=== PATIENT | male | born 1990 | race African-American/Black ===

== ENCOUNTER 2019-12-20 11:46 | Inpatient (IN) | payer MEDICAID ==
[~2019-12-20] VITALS: Ht 185.4 cm; Wt 81.2 kg
--- NOTE | 2019-12-20 11:51 | NUR ---
BIBSELF W C/O SHARP L SIDED CHEST PAIN SINCE THIS MORNING 1130 AM, PAIN ON INSPIRATION 10/10PS. TO ER BED 11, HOOKED TO MONITOR, CHANGED TO HOSP GOWN, WARM BLANKLET PROVIDED. AWAITING MD MALONE
--- NOTE | 2019-12-20 11:55 | NUR ---
DR ESPINOZA AT BEDSIDE
--- NOTE | 2019-12-20 12:42 | NUR ---
DR ESPINOZA AT BEDSIDE TO EXPLAIN PROCEDURE. PATIENT VERBALIZED UNDERSTANDING.
--- NOTE | 2019-12-20 12:48 | NUR ---
PATIENT SIGNED FOR TUBE THORACOSTOMY FOR LEFT PNEUMOTHORAX
--- NOTE | 2019-12-20 12:49 | NUR ---
CALLED THORACIC SALES PROGRAM COORDINATOR DR ALVARADO, LEFT VOICEMAIL
--- NOTE | 2019-12-20 12:50 | NUR ---
DR ALVARADO SPEAKING WITH DR ESPINOZA
[2019-12-20 12:51] LABS: CALCIUM, SERUM 9.6 mg/dL (8.5-10.1); CARBON DIOXIDE 30 mmol/L (21-32); CHLORIDE 103 mmol/L (98-107); GLUCOSE 95 mg/dL (74-106); SODIUM SERUM 140 mmol/L (136-145); UREA NITROGEN, BLOOD 12 mg/dL (7-18)
--- NOTE | 2019-12-20 13:12 | NUR ---
DR ESPINOZA AT BEDSIDE FOR PROCEDURE
[2019-12-20 13:13] LABS: BASOPHILS % (AUTO) 0.6 % (0.0-2.0); EOSINOPHILS % (AUTO) 2.2 % (0.0-6.0); HEMATOCRIT 48 % (39-51); HEMOGLOBIN 16.1 g/dL (13.5-17.5); LYMPHOCYTES # (AUTO) 1.7 /CMM (0.8-4.8); LYMPHOCYTES % (AUTO) 31.7 % (20.0-44.0); MEAN CORPUSCULAR HGB CONC 34 g/dl (31.0-36.0); MEAN CORPUSCULAR VOLUME 95 fL (80-96); MONOCYTES # (AUTO) 0.3 /CMM (0.1-1.30); MONOCYTES % (AUTO) 5.5 % (2.0-12.0); NEUTROPHILS # (AUTO) 3.3 /CMM (1.8-8.9); PLATELET COUNT (AUTO) 280 /CMM (150-450); RED BLOOD CELL COUNT(AUTO) 5.03 MIL/uL (4.5-6.0); WHITE BLOOD COUNT (AUTO) 5.4 K/uL (4.3-11.0)
--- NOTE | 2019-12-20 13:25 | NUR ---
CONSENT SIGNED BY THE PATIENT FOR MODERATE SEDATION
[2019-12-20] MEDS ORDERED: LIDOCAINE 1% INJ 50 ML MDV IJ ONE (13:29)
[2019-12-20] MEDS ORDERED: FENTANYL PF 100MCG/2ML AMPUL ONE (13:29)
--- NOTE | 2019-12-20 13:29 | NUR ---
RECEIVED VERBAL ORDER FROM DR ESPINOZA OF FENTANYL 100MCG IVP. CARRIED OUT
[2019-12-20] MEDS ORDERED: KETAMINE HCL (500MG/10ML) 50 MG/ML VIAL ONE (13:43)
[2019-12-20] MEDS ORDERED: KETAMINE HCL(200MG/20ML) 10 MG/ML VIAL IV ONE ×2 (14:00→15:00)
--- NOTE | 2019-12-20 14:06 | NUR ---
RECEIVED VERBAL ORDER FROM DR ESPINOZA OF KETAMINE 150MG IVP. CARRIED OUT
--- NOTE | 2019-12-20 14:13 | NUR ---
RECEIVED VERBAL ORDER FROM DR ESPINOZA OF KETAMINE 150MG IVP. CARRIED OUT
--- NOTE | 2019-12-20 14:15 | NUR ---
XRAY, PLACEMENT OF CHEST TUBE CONFIRMED BY DR BLANTON AND DR ESPINOZA
--- NOTE | 2019-12-20 14:24 | NUR ---
POST PROCEDURE VSS AFTER INSERTION OF CHEST TUBE TAKEN AND RECORDED. BP: 174/101 HR: 77 RESP: 16 O2 SATURATION: 100%
--- NOTE | 2019-12-20 14:28 | NUR ---
PATIENT AWAKE FROM MODERATE SEDATION, AOx4, VSS.
[2019-12-20] MEDS ORDERED: HYDROMORPHONE INJ 0.5 MG/0.5 ML SYRINGE IV PRN ×2 (15:00→16:00)
--- NOTE | 2019-12-20 15:35 | NUR ---
REPORT GIVEN TO WIL HAY OF [facility]
[2019-12-20] MEDS ORDERED: ONDANSETRON HCL/PF 4 MG/2 ML VIAL IVP PRN (16:00)
[2019-12-20] MEDS ORDERED: MAGNESIUM HYDROXIDE 30 ML UDC PO PRN (16:00)
[2019-12-20] MEDS ORDERED: ACETAMINOPHEN 325 MG TABLET PO PRN (16:00)
[2019-12-20] MEDS ORDERED: Z GUARD REMEDY 2 OZ OINT TP PRN (16:00)
[2019-12-20] MEDS ORDERED: MAG HYDROX/AL HYDROX/SIMETH 30 ML UDC PO PRN (16:00)
[2019-12-20] MEDS ORDERED: FENTANYL PF 100MCG/2ML AMPUL IV PRN (16:30)
[2019-12-20] MEDS ORDERED: HYDROMORPHONE 1 MG/1 ML DISP.SYRIN ONE (16:32)
[2019-12-20] MEDS: IV NS 0.9% 1,000 ML IV PRN (16:53)
[2019-12-20 17:00] VITALS: BP 139/79
[2019-12-20] MEDS ORDERED: HYDROMORPHONE INJ 2 MG/ML DISP.SYRIN IV ONE (17:00)
--- NOTE | 2019-12-20 17:00 | NUR ---
CEMENTER MACHINE NOTE RECEIVED REPORT FROM GHAZAL HAY. PATIENT CAME IN VIA GURNEY. ON ROOM AIR, NO COMPLAINS OF ANY SOB AT THIS TIME. COMPLAINING OF PAIN ON HIS LEFT CHEST. ALERT AND ORIENTED X4. ON TELE MONITOR, SR. SKIN INTACT. PATIENT IS AMBULATORY WITH STEADY GAIT. HAS A LEFT AC #18 AND RIGHT AC #18. PATIENT IS S/P CHEST TUBE INSERTION IN ER AT 1408. 20F MID AXILLARY 4TH AND 5TH INTERCOSTAL SPACE. PATIENT WAS GIVEN MODERATE SEDATION. WAITING FOR ADMITTING ORDERS
[2019-12-20 17:30] VITALS: BP 139/79
[2019-12-20] MEDS: PANTOPRAZOLE 40 MG TABLET.DR PO SCH (18:28)
[2019-12-20] MEDS: HYDROCODONE/APAP 10/325MG 1 EA TABLET PO PRN ×2 (18:29→22:04)
--- NOTE | 2019-12-20 19:30 | NUR ---
RN NOTES RECEIVED PT. AWAKE ON BED, S/P CHEST TUBE INSERTION IN ER, CHEST TUBE SITE DRY AND INTACT, SR ON TELE MONITOR ,A/OX4, PAIN IS TOLERABLE AT THIS TIME, NO SOB, CALL ;LIGHT WITHIN REACH, SIDERAILSUPX2, CONTINUE TO MONITOR
[2019-12-20 20:00] VITALS: BP 109/70
[2019-12-20] MEDS: MORPHINE SULFATE INJ 4 MG/ML DISP.SYRIN IV PRN (20:24)
--- NOTE | 2019-12-20 20:51 | NUR ---
RN NOTES PT. COMPLAINED OF LEFT CHEST TUBE SITE- MORPHINE 4 MG IV GIVEN ORDERED, V/S STABLE
[2019-12-21] VITALS: BP 120/69
[2019-12-21] MEDS: MORPHINE SULFATE INJ 4 MG/ML DISP.SYRIN IV PRN ×5 (00:08→20:08)
--- NOTE | 2019-12-21 00:13 | NUR ---
RN NOTES COMPLAINED OF LEFT CHEST TUBE SITE- MORPHINE 4 MG IV GIVEN ORDERED, V/S STABLE
[2019-12-21] MEDS: HYDROCODONE/APAP 10/325MG 1 EA TABLET PO PRN ×5 (02:10→17:40)
--- NOTE | 2019-12-21 02:18 | NUR ---
RN NOTES COMPLAINED OF LEFT CHEST TUBE SITE PAIN- GAVE NORCO 10/325MG PO FOR BREAKTHROUGH PAIN, V/S STABLE
[2019-12-21 04:00] VITALS: BP 123/56
--- NOTE | 2019-12-21 04:00 | NUR ---
RN NOTES COMPLAINED OF LEFT CHEST TUBE SITE PAIN 07/05- MORPHINE 4 MG IV GIVEN ORDERED, V/S STABLE
[2019-12-21] MEDS: IV NS 0.9% 1,000 ML IV PRN (04:18)
--- NOTE | 2019-12-21 06:10 | NUR ---
RN NOTES COMPLAINED OF LEFT CHEST TUBE SITE PAIN- 5/10, NORCO 10/325MG PO GIVEN ORDERED, V/S STABLE
--- NOTE | 2019-12-21 06:20 | NUR ---
RN NOTES AWAKE, MORNING CARE RENDERED, CHEST TUBE IN PLACE, SIDERAILSUPX2, CALL LIGHT WITHIN REACH, PT. NEEDS ATTENDED
--- NOTE | 2019-12-21 07:30 | NUR ---
MS/RN OPENING NOTES: RECEIVED PT AWAKE IN BED A&OX4. NO RESPIRATORY DISTRESS NOTED. PT WITH CHEST TUBE ON LEFT SIDE W/ NO DRAINAGE NOTED AT THIS TIME. DRESSING CLEAN AND DRY. RESPIRATIONS EVEN AND UNLABORED. HAS IV ACCESS ON RIGHT AC AND LEFT AC W/ 0.9% NS RUNNING AT 75ML/HR ON THE LEFT AC. LINES FLUSHED, INTACT, CLEAN AND DRY W/ SL. PT COMFORTABLE AT THIS TIME. ALL SCHEDULED AM MEDS TO BE GIVEN. CALL LIGHT W/IN REACH, SAFETY MEASURES IN PLACE. ONGOING MONITORING.
[2019-12-21 07:37] LABS: BASOPHILS % (AUTO) 0.3 % (0.0-2.0); EOSINOPHILS % (AUTO) 0.6 % (0.0-6.0); HEMATOCRIT 48 % (39-51); HEMOGLOBIN 16.3 g/dL (13.5-17.5); LYMPHOCYTES # (AUTO) 3.6 /CMM (0.8-4.8); LYMPHOCYTES % (AUTO) 36.3 % (20.0-44.0); MEAN CORPUSCULAR HGB CONC 34 g/dl (31.0-36.0); MEAN CORPUSCULAR VOLUME 94 fL (80-96); MONOCYTES # (AUTO) 0.8 /CMM (0.1-1.30); MONOCYTES % (AUTO) 8.4 % (2.0-12.0); NEUTROPHILS # (AUTO) 5.4 /CMM (1.8-8.9); NEUTROPHILS % (AUTO) 54.4 % (43.0-81.0); PLATELET COUNT (AUTO) 270 /CMM (150-450); RED BLOOD CELL COUNT(AUTO) 5.14 MIL/uL (4.5-6.0); WHITE BLOOD COUNT (AUTO) 9.8 K/uL (4.3-11.0)
[2019-12-21 08:00] VITALS: BP_SYST 103; BP_SYST 115; BP_DIAS 55; BP_DIAS 58
[2019-12-21 08:23] LABS: CALCIUM, SERUM 9.3 mg/dL (8.5-10.1); CREATININE 0.9 mg/dL (0.6-1.3); MAGNESIUM 1.9 mg/dL (1.8-2.4); PHOSPHORUS 3.8 mg/dL (2.5-4.9); POTASSIUM 3.4 mmol/L (3.5-5.1)
[2019-12-21] MEDS: PANTOPRAZOLE 40 MG TABLET.DR PO SCH (08:53)
--- NOTE | 2019-12-21 11:20 | NUR ---
TELE1/SEAMLESS HOSIERY KNITTER OF CARE PT ENDORSED TO NURSE ROBLERO IN STABLE CONDITION TO CONTINUE CARE.
--- NOTE | 2019-12-21 11:51 | NUR ---
MS RN Notes Patient in stable condition. Alert and oriented x4. Patient RR. 16 02-96 on RA. No SOB, patient occasionally coughs non productive. IV access R and L AC flushes well. Ambulated patient around unit. Reassessed pain after prior Dilaudid administration. Patient reports 5/10 pain from prior reported pain of "9 or 10". Will continue to monitor for s/s of respiratory distress and signs of pain.
[2019-12-21 14:20] VITALS: BP 115/55
[2019-12-21] MEDS ORDERED: POTASSIUM CHLORIDE 20 MEQ TAB.PRT.SR PO SCH (14:30)
[2019-12-21 16:01] VITALS: BP 115/55
--- NOTE | 2019-12-21 17:21 | NUR ---
RN NOTE PT ENDORSE TO SATNAM BOTELLO AT THIS TIME
--- NOTE | 2019-12-21 17:45 | NUR ---
MS RN NOTES RECEIVED PATIENT A/O X 4. NO SOB NOTED AT THIS TIME. PATIENT IS COMPLAINING OF CHEST TUBE SITE PAIN, PAIN MEDICATION WILL BE PROVIDE. CALL LIGHT WITHIN REACH , BED AT THE LOWEST POSITION LOCKED. NO CHEST TUBE DRAINAGE NOTED AT THIS TIME.
--- NOTE | 2019-12-21 19:45 | NUR ---
MS RN NOTES PATIENT IN BED AWAKE, NO SOB OR DISCOMFORT NOTED AT THIS TIME. ALL NEEDS ATTENDED. CALL LIGHT WITHIN REACH, BED AT THE LOWEST POSITION LOCKED, WILL ENDORSE TO TUBE CLEANING OPERATOR FOR HANSEL.
[2019-12-21 20:00] VITALS: BP 134/80
--- NOTE | 2019-12-21 20:14 | NUR ---
IVF DISCONTINUED PATIENT STATES DOCTOR SAID HE DIDN'T HAVE TO GET IVF, PATIENT HAS NOT BEEN RECIEVING SINCE THIS AFTERNOON.
[2019-12-21] MEDS: ZOLPIDEM TARTRATE 5 MG TABLET PO PRN (21:07)
[2019-12-22] MEDS: MORPHINE SULFATE INJ 4 MG/ML DISP.SYRIN IV PRN ×6 (00:09→22:42)
[2019-12-22 04:00] VITALS: BP 130/63
[2019-12-22 07:04] LABS: CALCIUM, SERUM 9.2 mg/dL (8.5-10.1); CREATININE 0.8 mg/dL (0.6-1.3); POTASSIUM 3.8 mmol/L (3.5-5.1)
--- NOTE | 2019-12-22 07:15 | NUR ---
RN OPENING NOTE: RECEIVED PATIENT IN BED. AWAKE, ALERT AND ORIENTED X4. EASILY AROUSABLE. ON ROOM AIR AND TOLERATING WELL, SATURATION >92%. NO SOB AND NOT IN RESPIRATORY DISTRESS. WITH CHEST TUBE ON WATER SEAL LOCATED ON THE LEFT SIDE. NO LEAKS NOTED, SYSTEM BELOW THE LUNGS. IV SITES PATENT, CLEAN, DRY AND SECURE. PAIN REPORTED AROUND CHEST TUBE SITE AND PATIENT WILL BE GIVEN PAIN MEDICATION TO ADDRESS THE ISSUE. CALL LIGHT IN REACH. BED LOCKED, LOW AND AT SEMI-MCWILLIAMS'S POSITION. NEEDS ANTICIPATED. SIDE RAILS UP X3. WILL CONTINUE TO MONITOR.
[2019-12-22] MEDS: PANTOPRAZOLE 40 MG TABLET.DR PO SCH (07:46)
[2019-12-22 08:00] VITALS: BP 124/67
[2019-12-22] MEDS ORDERED: MAGNESIUM HYDROXIDE 30 ML UDC PO PRN (11:00)
[2019-12-22] MEDS: DOCUSATE SODIUM 100 MG CAPSULE PO SCH ×2 (14:18→16:31)
[2019-12-22] MEDS: HYDROCODONE/APAP 10/325MG 1 EA TABLET PO PRN ×2 (14:18→21:19)
[2019-12-22 16:00] VITALS: BP 132/74
[2019-12-22 16:17] VITALS: BP 132/54
[2019-12-22] MEDS ORDERED: BISACODYL (5 MG) 5 MG TABLET.DR PO PRN (18:30)
--- NOTE | 2019-12-22 18:57 | NUR ---
RN CLOSING NOTE: PATIENT STILL IN BED. AWAKE, ALERT AND ORIENTED X4. NO ACUTE CHANGES ON SHIFT. ON ROOM AIR AND TOLERATING WELL, SATURATION >92%. NO SOB AND NOT IN RESPIRATORY DISTRESS. WITH CHEST TUBE ON WATER SEAL LOCATED ON THE LEFT SIDE. NO LEAKS NOTED, SYSTEM BELOW THE LUNGS AND NO DRAINAGE NOTED ON SHIFT. IV SITES PATENT, CLEAN, DRY AND SECURE. PAIN MANAGEMENT DONE THROUGHOUT SHIFT FOR PAIN AT CHEST TUBE SITE. CALL LIGHT IN REACH. BED LOCKED, LOW AND AT SEMI-MCWILLIAMS'S POSITION. NEEDS ANTICIPATED. SIDE RAILS UP X3. WILL CONTINUE TO MONITOR. ENDORSED TO ONCOMING SHIFT FOR HANSEL.
[2019-12-22 20:00] VITALS: BP 136/56
[2019-12-22] MEDS: ZOLPIDEM TARTRATE 5 MG TABLET PO PRN (22:39)
[2019-12-23] MEDS: HYDROCODONE/APAP 10/325MG 1 EA TABLET PO PRN ×3 (01:18→13:23)
[2019-12-23] MEDS: MORPHINE SULFATE INJ 4 MG/ML DISP.SYRIN IV PRN ×2 (02:33→08:13)
[2019-12-23 04:00] VITALS: BP 137/65
--- NOTE | 2019-12-23 07:00 | NUR ---
RN OPENING NOTE: RECEIVED PATIENT IN BED. AWAKE, ALERT AND ORIENTED X4. EASILY AROUSABLE. ON ROOM AIR AND TOLERATING WELL, SATURATION >92%. NO SOB AND NOT IN RESPIRATORY DISTRESS. WITH CHEST TUBE ON WATER SEAL LOCATED ON THE LEFT SIDE. NO LEAKS NOTED, SYSTEM BELOW THE LUNGS. IV SITES PATENT, CLEAN, DRY AND SECURE. PAIN REPORTED AROUND CHEST TUBE SITE AND PATIENT WILL BE GIVEN PAIN MEDICATION TO ADDRESS THE ISSUE. BED LOCKED AND LOWEST POSIITON CALL LIGHT WITH IN REACH ALL SAFETY MEASURE IMPLEMENTED PER HOSPITAL POLICY
[2019-12-23 08:00] VITALS: BP 130/73
[2019-12-23] MEDS: PANTOPRAZOLE 40 MG TABLET.DR PO SCH (08:13)
--- NOTE | 2019-12-23 09:00 | NUR ---
RN MS NOTES DR. RUIZ TOOK OFF CHEST TUBE ON PATIENT. NO SOB. NO ACUTE RESPIRATORY DISTRESS. PATIENT IS IN PAIN
[2019-12-23] MEDS: DOCUSATE SODIUM 100 MG CAPSULE PO SCH (09:27)
[2019-12-23 12:00] VITALS: BP 130/73
--- NOTE | 2019-12-23 16:20 | NUR ---
RN MS NOTES DOCTORS CLEARED PATIENT FOR DISCHARGE. PATIENT DISCHARGE. PAPER SIGNED FOR DISCHARGE PAPERS PATIENT INFORMED TO FOLLOW UP WITH PCP INFORMATION PROVIDED ABOUT CLINIC. PATIENT WITH GIRL FRIEND DELIA [phone]
== END 2019-12-23 16:15 | disposition home or self-care (01) | DRG 143 ==
LOC: ER 11:46 → TELE 14:26 → TELE1 15:09 → TELE-TD 16:03 → MEDSG1 12-21 10:02
PROVIDERS: ADMIT Nurse Practitioner Acute Care; ATTEND Internal Medicine
PROC: 0W9B30Z Drainage of Left Pleural Cavity with Drainage Device, Percutaneous Approach (ICD-10-PCS; principal; 2019-12-20)
DX: J93.11 Primary spontaneous pneumothorax (principal); J98.2 Interstitial emphysema; F12.20 Cannabis dependence, uncomplicated; J45.909 Unspecified asthma, uncomplicated; J93.82 Other air leak
CPT/HCPCS: 32551; 36415; 71045-TC; 71250-TC; 80048-TC; 83735-TC; 84100-TC; 84484-TC; 85025-TC; 85610-TC; 85730-TC; 87081-TC; A6403; G0378; J1170; J2270; J2405; J3010; J3490; J7030

== ENCOUNTER 2019-12-27 15:09 | Inpatient (IN) | payer MEDICAID ==
[~2019-12-27] VITALS: Ht 165.1 cm; Wt 75.3 kg
--- NOTE | 2019-12-27 15:21 | NUR ---
PURULENT DRAINAGE FROM CHEST TUBE INSERTION SITE S/P COUGHING SPELL TODAY, PT TO BED 5, PT ON MONITOR, -SOB, NAD NOTED, PENDING MD MALONE
[2019-12-27] MEDS ORDERED: MORPHINE SULFATE INJ 2 MG/ML DISP.SYRIN IV ONE (15:30)
[2019-12-27] MEDS ORDERED: VANCOMYCIN 1 GM in IV D5W 250 ML IV ONE (15:30)
[2019-12-27] MEDS ORDERED: IV NS 0.9% 1,000 ML BAG IV ONE (15:30)
[2019-12-27] MEDS ORDERED: ONDANSETRON HCL/PF 4 MG/2 ML VIAL IVP ONE (15:30)
[2019-12-27] MEDS ORDERED: ONDANSETRON HCL/PF 4 MG/2 ML VIAL ONE (15:48)
[2019-12-27] MEDS ORDERED: MORPHINE SULFATE INJ 4 MG/ML DISP.SYRIN ONE (15:49)
[2019-12-27] MEDS ORDERED: VANCOMYCIN 1 GM VIAL ONE ×2 (15:49→22:52)
[2019-12-27] MEDS ORDERED: IOHEXOL-300 100 ML VIAL IV ONE (15:55)
[2019-12-27 16:00] LABS: BASOPHILS % (AUTO) 0.2 % (0.0-2.0); HEMATOCRIT 43 % (39-51); HEMOGLOBIN 14.6 g/dL (13.5-17.5); LYMPHOCYTES # (AUTO) 0.8 /CMM (0.8-4.8); MEAN CORPUSCULAR HGB CONC 34 g/dl (31.0-36.0); MEAN CORPUSCULAR VOLUME 92 fL (80-96); MONOCYTES % (AUTO) 9.6 % (2.0-12.0); NEUTROPHILS # (AUTO) 17.6 /CMM (1.8-8.9); NEUTROPHILS % (AUTO) 86.2 % (43.0-81.0); PLATELET COUNT (AUTO) 363 /CMM (150-450); RED BLOOD CELL COUNT(AUTO) 4.65 MIL/uL (4.5-6.0); WHITE BLOOD COUNT (AUTO) 20.4 K/uL (4.3-11.0)
--- NOTE | 2019-12-27 16:00 | NUR ---
CHEST TUBE INSERTION SITE DRSG CHANGED
[2019-12-27 16:23] LABS: CALCIUM, SERUM 9.7 mg/dL (8.5-10.1); CREATININE 0.8 mg/dL (0.6-1.3); POTASSIUM 3.3 mmol/L (3.5-5.1)
[2019-12-27 16:28] LABS: ALBUMIN 3.3 g/dL (3.4-5.0); BILIRUBIN,DIRECT 0.8 mg/dL (0.0-0.2); BILIRUBIN,TOTAL 1.5 mg/dL (0.2-1.0); TOTAL PROTEIN, SERUM 8.3 g/dL (6.4-8.2)
[2019-12-27] MEDS ORDERED: ACET-2605 PO (18:03)
[2019-12-27] MEDS ORDERED: ACET-868 PO (18:03)
--- NOTE | 2019-12-27 19:19 | NUR ---
epic paged its angela
[2019-12-27 20:10] VITALS: BP 142/74
--- NOTE | 2019-12-27 20:10 | NUR ---
MS RN NOTE PT ARRIVED TO FLOOR VIA GURNEY ACCOMPANIED BY ER STAFF. PT ABLE TO AMBULATE FROM GURNEY TO BED, STEADY GAIT. PT IN STABLE CONDITION A/O X4, NO SIGNS OF SOB OR DISTRESS. NO C/O PAIN OR N/V. IV IN R AC #[address] ALL CURRENT NEEDS ATTENDED TO. BED LOW, LOCKED, UPPER RAILS UP, AND CALL LIGHT WITHIN REACH. WILL CONT. TO MONITOR. BODY ASSESSED, PHOTOS PLACED IN CHART. ALL BELONGINGS ACCOUNTED AND SIGNED FOR. DR. OLIVIER PAGED AND NOTIFIED OF PT ARRIVAL TO FLOOR, AWAITING ADMIT ORDERS.
--- NOTE | 2019-12-27 20:32 | NUR ---
report given to eyad hobson, transported to [facility]
[2019-12-27 21:01] VITALS: BP 142/74
[2019-12-27] MEDS ORDERED: HYDROCODONE/APAP 5/325MG 1 EACH TABLET PO PRN (22:00)
[2019-12-27] MEDS ORDERED: ACETAMINOPHEN 325 MG TABLET PO PRN ×2 (22:00)
[2019-12-27] MEDS: MORPHINE SULFATE INJ 2 MG/ML DISP.SYRIN IV PRN (22:27)
[2019-12-27] MEDS ORDERED: PIPERACILLIN /TAZOBACTAM 2.25 G VIAL IV ONE (22:52)
[2019-12-27] MEDS: ONDANSETRON HCL/PF 4 MG/2 ML VIAL IVP PRN (22:59)
[2019-12-27] MEDS ORDERED: VANCOMYCIN 1 GM in IV D5W 250ml IV SCH (23:00)
--- NOTE | 2019-12-27 23:00 | NUR ---
MS RN NOTE CALLED [employer] TO CLARIFY VANCO ORDER. PER PHARMACY, WE MAY GIVE 2330 DOSE OF VANCO. WILL ADMIN.
[2019-12-27] MEDS: PIPERACILLIN /TAZOBACTAM 4.5 G in IV D5W 50 ML IV SCH (23:02)
[2019-12-27] MEDS: ALBUTEROL FS 2.5 MG/3 ML VIAL.NEB NEB SCH (23:50)
--- NOTE | 2019-12-28 00:30 | NUR ---
MS RN NOTE SEEN AND EXAMINED BY DR. OLIVIER.
[2019-12-28] MEDS: ALBUTEROL FS 2.5 MG/3 ML VIAL.NEB NEB SCH ×6 (03:30→23:24)
[2019-12-28] MEDS: MORPHINE SULFATE INJ 2 MG/ML DISP.SYRIN IV PRN ×3 (06:32→16:36)
[2019-12-28] MEDS: PIPERACILLIN /TAZOBACTAM 4.5 G in IV D5W 50 ML IV SCH (06:48)
--- NOTE | 2019-12-28 07:30 | NUR ---
MS RN OPENING NOTE PATIENT IN BED RESTING COMFORTABLY. PATIENT IN NO ACUTE DISTRESS. NO SOB NOTED. PATIENT BREATHING IS EVEN AND UNLABORED. PATIENT IN NO PAIN AT THIS TIME. SAFETY PRECAUTIONS IN PLACE. NEEDS AND CONCERNS ADDRESSED. PATIENT BED IS LOCKED AND IN LOWEST POSITION. CALL LIGHT WITHIN REACH. WILL CONTINUE TO MONITOR.
[2019-12-28] MEDS ORDERED: FEE PK DOSING 1 MIN EA MC ONE (07:45)
[2019-12-28 07:47] LABS: BASOPHILS % (AUTO) 0.2 % (0.0-2.0); EOSINOPHILS % (AUTO) 0.2 % (0.0-6.0); HEMATOCRIT 40 % (39-51); LYMPHOCYTES # (AUTO) 1.3 /CMM (0.8-4.8); LYMPHOCYTES % (AUTO) 7.2 % (20.0-44.0); MEAN CORPUSCULAR HGB CONC 33 g/dl (31.0-36.0); MEAN CORPUSCULAR VOLUME 93 fL (80-96); MONOCYTES # (AUTO) 1.5 /CMM (0.1-1.30); MONOCYTES % (AUTO) 8.1 % (2.0-12.0); NEUTROPHILS # (AUTO) 15.5 /CMM (1.8-8.9); NEUTROPHILS % (AUTO) 84.3 % (43.0-81.0); PLATELET COUNT (AUTO) 353 /CMM (150-450); RED BLOOD CELL COUNT(AUTO) 4.25 MIL/uL (4.5-6.0); WHITE BLOOD COUNT (AUTO) 18.4 K/uL (4.3-11.0)
--- NOTE | 2019-12-28 07:48 | NUR ---
MS RN NOTE PT REMAINS IN STABLE CONDITION A/O X4, NO SIGNS OF SOB OR DISTRESS. NO C/O PAIN OR N/V. IV IN R AC #[address] ALL CURRENT NEEDS ATTENDED TO. BED LOW, LOCKED, UPPER RAILS UP, AND CALL LIGHT WITHIN REACH. ENDORSE TO NEXT SHIFT FOR HANSEL.
[2019-12-28 08:00] VITALS: BP 126/63
[2019-12-28] MEDS: PANTOPRAZOLE 40 MG TABLET.DR PO SCH (08:21)
[2019-12-28 08:26] LABS: ALBUMIN 2.7 g/dL (3.4-5.0); BILIRUBIN,TOTAL 0.9 mg/dL (0.2-1.0); CALCIUM, SERUM 9.4 mg/dL (8.5-10.1); CREATININE 0.9 mg/dL (0.6-1.3); MAGNESIUM 1.6 mg/dL (1.8-2.4); PHOSPHORUS 2.8 mg/dL (2.5-4.9); POTASSIUM 3.4 mmol/L (3.5-5.1); TOTAL PROTEIN, SERUM 7.3 g/dL (6.4-8.2)
[2019-12-28] MEDS: VANCOMYCIN 1.25 GM in IV D5W 250 ML IV SCH ×2 (08:37→16:36)
[2019-12-28] MEDS: PIPERACILLIN /TAZOBACTAM 3.375 G in IV D5W 100 ML IV SCH ×2 (10:24→17:42)
[2019-12-28] MEDS: Magnesium 1GM/D5W 100ML PREMIX 100 ML IV SCH ×2 (11:34→14:21)
[2019-12-28] MEDS ORDERED: PIPERACILLIN /TAZOBACTAM 4.5 G in IV D5W 50 ML IV SCH (12:00)
[2019-12-28] MEDS: POTASSIUM CL. PREMIX PERIPHER. 50 ML IV SCH ×2 (12:59→15:54)
[2019-12-28] MEDS: ONDANSETRON HCL/PF 4 MG/2 ML VIAL IVP PRN (14:26)
[2019-12-28 16:00] VITALS: BP 136/84
--- NOTE | 2019-12-28 19:05 | NUR ---
MS RN CLOSING NOTE PATIENT IN BED RESTING COMFORTABLY. PATIENT IN NO ACUTE DISTRESS. NO SOB NOTED. PATIENT BREATHING IS EVEN AND UNLABORED. PATIENT IN NO PAIN AT THIS TIME. PATIENT KEPT CLEAN, DRY AND COMFORTABLE THROUGHOUT SHIFT. SAFETY PRECAUTIONS IN PLACE. IVS PATENTS AND INTACT. PATIENT NPO AFTER MIDNIGHT.PATIENT BED IS LOCKED AND IN LOWEST POSITION. CALL LIGHT WITHIN REACH. WILL ENDORSE CARE TO PM SHIFT FOR HANSEL. Addendum: 12/28/19 at 1911 by EDGAR COX RN MS RN CLOSING NOTE PATIENT IN BED RESTING COMFORTABLY. PATIENT IN NO ACUTE DISTRESS. NO SOB NOTED. PATIENT BREATHING IS EVEN AND UNLABORED. PATIENT IN NO PAIN AT THIS TIME. PATIENT KEPT CLEAN, DRY AND COMFORTABLE THROUGHOUT SHIFT. SAFETY PRECAUTIONS IN PLACE. IVS PATENTS AND INTACT. LEFT CHEST INCISION WOUND KEPT CLEAN AND DRY. PATIENT MAINTAINED ON NPO STATUS. PATIENT BED IS LOCKED AND IN LOWEST POSITION. CALL LIGHT WITHIN REACH. WILL ENDORSE CARE TO PM SHIFT FOR HANSEL.
--- NOTE | 2019-12-28 20:15 | NUR ---
MS RN NOTES RECEIVED PATIENT AWAKE IN BED WITH NO DISTRESS NOTED. CALL LIGHT WITHIN REACH. NO C/O PAIN OR DISCOMFORT. PERIPHERAL LINES INTACT AND PATENT. LEFT CHEST DRESSING CLEAN DRY AND INTACT. ENCOURAGED USE OF CALL LIGHT FOR ASSISTANCE AND VERBALIZE GOOD UNDERSTANDING. BED IN LOW LOCK SETTING. ROOM FREE OF CLUTTER AND BELONGINGS KEPT NEAR BEDSIDE. WILL CONTINUE TO MONITOR.
[2019-12-28 20:41] VITALS: BP 139/68
[2019-12-29] MEDS: PIPERACILLIN /TAZOBACTAM 3.375 G in IV D5W 100 ML IV SCH ×3 (02:26→17:06)
[2019-12-29] MEDS: ONDANSETRON HCL/PF 4 MG/2 ML VIAL IVP PRN ×3 (02:42→22:42)
[2019-12-29] MEDS: ALBUTEROL FS 2.5 MG/3 ML VIAL.NEB NEB SCH ×6 (03:30→23:16)
[2019-12-29 06:34] LABS: BASOPHILS % (AUTO) 0.1 % (0.0-2.0); EOSINOPHILS % (AUTO) 0.3 % (0.0-6.0); HEMATOCRIT 39 % (39-51); HEMOGLOBIN 12.9 g/dL (13.5-17.5); LYMPHOCYTES # (AUTO) 1.1 /CMM (0.8-4.8); LYMPHOCYTES % (AUTO) 6.9 % (20.0-44.0); MEAN CORPUSCULAR HGB CONC 33 g/dl (31.0-36.0); MEAN CORPUSCULAR VOLUME 93 fL (80-96); MONOCYTES # (AUTO) 1.4 /CMM (0.1-1.30); MONOCYTES % (AUTO) 9.3 % (2.0-12.0); NEUTROPHILS % (AUTO) 83.4 % (43.0-81.0); PLATELET COUNT (AUTO) 384 /CMM (150-450); RED BLOOD CELL COUNT(AUTO) 4.14 MIL/uL (4.5-6.0); WHITE BLOOD COUNT (AUTO) 15.6 K/uL (4.3-11.0)
[2019-12-29 07:08] LABS: CALCIUM, SERUM 9.7 mg/dL (8.5-10.1); CREATININE 2.1 mg/dL (0.6-1.3); MAGNESIUM 2.5 mg/dL (1.8-2.4); POTASSIUM 3.6 mmol/L (3.5-5.1)
--- NOTE | 2019-12-29 07:08 | NUR ---
MS RN NOTES PATIENT ASLEEP IN BED WITH NO DISTRESS NOTED. CALL LIGHT WITHIN REACH. ALL DUE MEDS GIVEN ORDERED WITH NO ASE. NO C/O PAIN OR DISCOMFORT. PERIPHERAL LINES INTACT AND PATENT. LEFT CHEST DRESSING CLEAN DRY AND INTACT. DRESSING CHANGED X1 DURING SHIFT AND NOTED WITH LARGE AMOUNT BLOODY/PURULENT DRAINAGE. TOLERATED WELL WITH NO C/O PAIN OR DISCOMFORT. NPO STATUS INITIATED AT MIDNIGHT FOR SCHEDULED LEFT CHEST TUBE INSERTION SITE DEBRIDEMENT. BED IN LOW LOCK SETTING. ROOM FREE OF CLUTTER AND BELONGINGS KEPT NEAR BEDSIDE. WILL ENDORSE TO ONCOMING SHIFT.
[2019-12-29] MEDS: PANTOPRAZOLE 40 MG TABLET.DR PO SCH (07:30)
[2019-12-29 08:00] VITALS: BP 133/76
[2019-12-29] MEDS: VANCOMYCIN 1.25 GM in IV D5W 250 ML IV SCH ×3 (08:00)
--- NOTE | 2019-12-29 08:00 | NUR ---
MS/SATNAM [place] dose due at 0800 held as level drawn at 2300 12/28/2019 29. Pharmacy called, spoke with Kierra. Stated that she would look into it and call back.
--- NOTE | 2019-12-29 08:40 | NUR ---
WOUND CARE CONSULT: PER RN, NO WOUND CONSULT NEEDED DUE TO PT FOLLOWED BY SURGEON, DR JACOB. CURRENT RUMA SCORE IS 23. WILL SEE PRN.
--- NOTE | 2019-12-29 08:59 | NUR ---
MS/RN Dressing Wound dressing to left chest wall changed.
[2019-12-29] MEDS ORDERED: VANCOMYCIN 1.25 GM in IV D5W 250 ML IV SCH (10:00)
--- NOTE | 2019-12-29 12:00 | NUR ---
MS/RN S/B Reza Cross DNP Seen by DNP - 500ml normal saline bolus ordered as patients creatinine noted to have jumped by one point, OR nurse informed by DNP to administer bolus in operating room.
[2019-12-29] MEDS ORDERED: FENTANYL PF 100MCG/2ML AMPUL ONE (12:51)
[2019-12-29] MEDS ORDERED: MIDAZOLAM HCL 2 MG/2ML VIAL ONE (12:51)
[2019-12-29] MEDS ORDERED: IV NS 0.9% 500 ML IV ONE (13:00)
[2019-12-29] MEDS ORDERED: CEFAZOLIN 2 GM ONE (13:02)
[2019-12-29] MEDS ORDERED: HYDROMORPHONE INJ 2 MG/ML DISP.SYRIN ONE (13:44)
[2019-12-29] MEDS: VANCOMYCIN 1 GM in IV D5W 250ml IV SCH (14:12)
[2019-12-29 14:32] VITALS: BP 138/80
--- NOTE | 2019-12-29 14:32 | NUR ---
RN NOTES PATIENT BACK FROM SURGERY AT THIS TIME ,AWAKE, NO ACUTE RESPIRATORY DISTRESS, V/S TAKEN BP 138/80, P-65, R-19, T-97.8, 02-96 ROOM AIR. PATIENT COMPLAINING OF PAIN 7/10 PER PAIN SCALE AT THIS TIME SURGERY AREA. INFUSING VANCOMYCIN 250 MG/ML ON RIGHT HAND INTACT. CALL LIGHT WITHIN TO REACH. NEW ORDERS TAKEN AD CARRIED OUT. CONTINUED MONITORING.
[2019-12-29] MEDS: MORPHINE SULFATE INJ 2 MG/ML DISP.SYRIN IV PRN ×3 (14:48→22:41)
--- NOTE | 2019-12-29 14:48 | NUR ---
RN NOTES ADMINISTERED MORPHINE SULFATE 2 MG/ML IV PUSH FOR PAIN 07/05 PER PATIENT REQUEST V/S TAKEN BP 138/80, P-65, R-19. CONTINUED MONITORING.
[2019-12-29 16:00] VITALS: BP 135/80
[2019-12-29] MEDS: IV NS 0.9% 1,000 ML IV PRN ×2 (16:58→17:06)
--- NOTE | 2019-12-29 18:29 | NUR ---
MS/RN End note Patient remians in stable condition, no oozing noted through dressing. Last pain medication administered at 1830, last zofran at 1705. All needs attended, time allowed for questions and concerns to be addressed. Will endorse to hydro technician.
--- NOTE | 2019-12-29 19:00 | NUR ---
Recieved in bed asking for pain medication "when it is due" dressing left c/w CDI
[2019-12-29 20:00] VITALS: BP 137/78
[2019-12-30] MEDS: VANCOMYCIN 1 GM in IV D5W 250ml IV SCH ×3 (01:01→23:56)
[2019-12-30] MEDS: PIPERACILLIN /TAZOBACTAM 3.375 G in IV D5W 100 ML IV SCH ×3 (02:25→17:29)
[2019-12-30] MEDS: ALBUTEROL FS 2.5 MG/3 ML VIAL.NEB NEB SCH ×6 (03:30→23:30)
[2019-12-30] MEDS: MORPHINE SULFATE INJ 2 MG/ML DISP.SYRIN IV PRN ×4 (04:22→17:31)
[2019-12-30] MEDS: ONDANSETRON HCL/PF 4 MG/2 ML VIAL IVP PRN ×3 (04:27→17:31)
[2019-12-30 05:41] VITALS: BP 142/73
[2019-12-30 06:21] LABS: BASOPHILS % (AUTO) 0.3 % (0.0-2.0); EOSINOPHILS % (AUTO) 1.8 % (0.0-6.0); HEMATOCRIT 37 % (39-51); HEMOGLOBIN 12.3 g/dL (13.5-17.5); LYMPHOCYTES % (AUTO) 8.3 % (20.0-44.0); MEAN CORPUSCULAR HGB CONC 33 g/dl (31.0-36.0); MEAN CORPUSCULAR VOLUME 93 fL (80-96); MONOCYTES % (AUTO) 8.2 % (2.0-12.0); NEUTROPHILS # (AUTO) 9.6 /CMM (1.8-8.9); NEUTROPHILS % (AUTO) 81.4 % (43.0-81.0); PLATELET COUNT (AUTO) 444 /CMM (150-450); WHITE BLOOD COUNT (AUTO) 11.8 K/uL (4.3-11.0)
[2019-12-30 06:24] LABS: CALCIUM, SERUM 8.9 mg/dL (8.5-10.1); MAGNESIUM 2.3 mg/dL (1.8-2.4); PHOSPHORUS 4.5 mg/dL (2.5-4.9); POTASSIUM 3.7 mmol/L (3.5-5.1)
--- NOTE | 2019-12-30 07:48 | NUR ---
MS/RN Patient received Patient received from shift leader. Sleeping soundly at this time. Appears in no distress or discomfort, call light within reach, will continue to monitor and ensure safety.
[2019-12-30 08:00] VITALS: BP 135/74
[2019-12-30] MEDS: PANTOPRAZOLE 40 MG TABLET.DR PO SCH (08:09)
--- NOTE | 2019-12-30 09:50 | NUR ---
WOUND CARE CONSULT: PT SEEN FOR SURGICAL WOUND. SURGICAL ORDERS FOLLOWED FOR DRESSING CHANGE. PT TOLERATED WELL. RECOMMENDATIONS MADE FOR SKIN PROTECTION. DISCUSSED WITH NURSING STAFF. PHOTO TAKEN AND PLACED IN CHART BY RN. WILL SEE PRN. SALDAÑA IN AGREEMENT WITH PLAN OF CARE. Addendum: 12/30/19 at 0951 by KRISTINA MAO WNDNU Amended: Links added.
--- NOTE | 2019-12-30 10:55 | NUR ---
MS/RN S/B Wound care Seen by wound care - dressing changed and repacked with normal saline soaked gauze. Addendum: 12/30/19 at 1058 by RUTH DOMINGUEZ Wound measurements: W-0.6CM H-5CM D-9CM
--- NOTE | 2019-12-30 11:00 | NUR ---
MS/RN S/B Dr Smyth Seen by Dr Smyth - labs ordered for tomorrow.
--- NOTE | 2019-12-30 12:24 | NUR ---
MS/RN S/B Dr Storm Seen by Dr Storm - continue with current dressing changes and antibiotics.
[2019-12-30 16:00] VITALS: BP 136/72
[2019-12-30] MEDS: IV NS 0.9% 1,000 ML IV PRN (17:29)
--- NOTE | 2019-12-30 18:32 | NUR ---
MS/RN End note Patient continues to complain of nausea and pain, zofran and morphine administered as ordered. Dressing to left chest pain dry and intact, no drainage noted. All concerns addressed, questions answered, Will endorse to cnc milling machinist.
--- NOTE | 2019-12-30 19:11 | NUR ---
CHANGE OF SHIFT REPORT Patient in bed, awake, A/O x4. Left chest wall dressing clean and dry, denies pain, tolerating RA. IVF infusing. Safety measure in place.
--- NOTE | 2019-12-30 19:39 | NUR ---
RT PT RECEIVED ON ROOM AIR AWAKE/ALERT. HHN TX GIVEN ORDERED. NO SOB OR DISTRESS NOTED. PT REQUESTED NOT TO BE WOKEN UP FOR LATER TX. WILL CONTINUE TO MONITOR. RN MADE AWARE.
[2019-12-30 20:00] VITALS: BP 128/69
[2019-12-30 20:10] VITALS: BP_SYST 128; BP_SYST 186; BP_DIAS 69; BP_DIAS 83
--- NOTE | 2019-12-30 20:10 | NUR ---
Entered wrong V/S at 2110 please disregard. Correct V/S as follows: BP 128/69, Pulse75, R20, Temp 98.4F, O2 sat 99%
[2019-12-31] MEDS: PIPERACILLIN /TAZOBACTAM 3.375 G in IV D5W 100 ML IV SCH ×2 (02:28→10:08)
[2019-12-31] MEDS: ALBUTEROL FS 2.5 MG/3 ML VIAL.NEB NEB SCH ×4 (03:30→14:41)
[2019-12-31] MEDS: ONDANSETRON HCL/PF 4 MG/2 ML VIAL IVP PRN ×2 (05:27→12:39)
[2019-12-31] MEDS: MORPHINE SULFATE INJ 2 MG/ML DISP.SYRIN IV PRN ×2 (05:29→11:15)
--- NOTE | 2019-12-31 06:15 | NUR ---
END OF SHIFT REPORT Patient in bed, stable Oxygen saturation on room air. Left chest wall dressing clean and dry. Incision pain managed with PRN [place] and IV Morphine. IVF infusing, Iv antibiotic as scheduled, afebrile overnight. Nausea resolved with PRN Zofran. Ambulates to the bathroom independently. Maintained safety. Will endorse to Oncoming RN.
[2019-12-31 06:33] LABS: BASOPHILS % (AUTO) 0.3 % (0.0-2.0); EOSINOPHILS % (AUTO) 2.9 % (0.0-6.0); HEMATOCRIT 37 % (39-51); HEMOGLOBIN 12.7 g/dL (13.5-17.5); LYMPHOCYTES # (AUTO) 1.1 /CMM (0.8-4.8); LYMPHOCYTES % (AUTO) 11.4 % (20.0-44.0); MEAN CORPUSCULAR HGB CONC 34 g/dl (31.0-36.0); MEAN CORPUSCULAR VOLUME 93 fL (80-96); MONOCYTES # (AUTO) 1.2 /CMM (0.1-1.30); MONOCYTES % (AUTO) 11.9 % (2.0-12.0); NEUTROPHILS # (AUTO) 7.3 /CMM (1.8-8.9); NEUTROPHILS % (AUTO) 73.5 % (43.0-81.0); PLATELET COUNT (AUTO) 464 /CMM (150-450)
[2019-12-31 06:49] LABS: CREATININE 2.2 mg/dL (0.6-1.3); MAGNESIUM 2.2 mg/dL (1.8-2.4); PHOSPHORUS 4.6 mg/dL (2.5-4.9); POTASSIUM 3.4 mmol/L (3.5-5.1)
--- NOTE | 2019-12-31 07:26 | NUR ---
RN OPENING NOTE PT WAS RECEIVED IN BED AT LOWEST AND LOCKED POSITION WITH SIDE RAILS UP X2, A/O X4 BREATHING EVEN AND UNLABORED WITH NO DISTRESS OR PAIN NOTED AT THIS TIME, NOTED TO HAVE LEFT CHEST WALL WOUND, IV IS PATENT AND INTACT, SAFETY PRECAUTIONS IN PLACE, CALL LIGHT IN REACH, WILL MONITOR ACCORDINGLY
[2019-12-31 08:00] VITALS: BP 141/79
[2019-12-31] MEDS: PANTOPRAZOLE 40 MG TABLET.DR PO SCH (08:47)
[2019-12-31] MEDS ORDERED: POTASSIUM CL. PREMIX PERIPHER. 50 ML IV ONE (10:30)
[2019-12-31] MEDS ORDERED: DOXY100C41 PO (11:42)
[2019-12-31] MEDS ORDERED: HYDR-3972 PO (11:42)
[2019-12-31] MEDS: VANCOMYCIN 1 GM in IV D5W 250ml IV SCH (12:08)
--- NOTE | 2019-12-31 15:19 | NUR ---
RN NOTE PT REFUSED FOR PHOTO OF CHEST WOUND TO BE TAKEN, HE WAS INFORMED AND EDUCATED ABOUT ITS PURPOSE, BUT STILL REFUSED.
--- NOTE | 2019-12-31 15:37 | NUR ---
RN NOTE PT INFORMED AND EDUCATED ABOUT WOUND CARE TREATMENT REGARDING CHEST WOUND. EDUCATED ON PROPER DRESSING CHANGE AND TO REMOVE PACKING WITH NS IF IT IS TO DRY AND ATTACHED TO HIS SKIN. INFORMED TO PACK THE WOUND WITH NS MOISTENED KERLIX AND TO COVER IT IT UP WITH ABD PAD AND TAPE.
--- NOTE | 2019-12-31 15:45 | NUR ---
RN NOTE PT WAS DISCHARGED AT THIS TIME IN MEDICALLY STABLE CONDITION BACK HOME AT THIS TIME. IV AND ID BAND WERE REMOVED, ALL EXITCARE, D/C PAPERWORK, AND BELONGINGS LIST WERE SIGNED DISCUSSED AND HANDED TO THE PATIENT. INFORMED AND EDUCATED ON WOUND CARE. REFUSED FOR PHOTOS OF SKIN TO BE TAKEN. INFORMED AND INFORMATION PROVIDED TO FOLLOW UP AT [facility] FOR WOUND CARE IF NEEDED. INFORMED TO ALSO F/U WITH AND VIDEO PLAYER MECHANIC IN 1 WEEK. ALL NEEDS WERE ATTENDED TO AT THIS TIME. PT WAS WALKED DOWN BY PROFESSIONAL DRIVER WHERE HE LEFT AT THIS TIME IN STABLE CONDITION
== END 2019-12-31 15:45 | disposition home or self-care (01) | DRG 711 ==
LOC: ER 15:10 → MEDSG2 18:29
PROVIDERS: ADMIT Internal Medicine; ATTEND Hospitalist
PROC: 0K9 Muscles, Drainage (ICD-10-PCS; principal; 2019-12-29)
DX: T81.42XA Infection following a procedure, deep incisional surgical site, initial encounter (principal); N17.0 Acute kidney failure with tubular necrosis; J85.2 Abscess of lung without pneumonia; J98.2 Interstitial emphysema; E44.0 Moderate protein-calorie malnutrition; T81.44XA Sepsis following a procedure, initial encounter; R59.0 Localized enlarged lymph nodes; E87.6 Hypokalemia; E83.42 Hypomagnesemia; Z68.27 Body mass index [BMI] 27.0-27.9, adult; E88.09 Other disorders of plasma-protein metabolism, not elsewhere classified; F17.210 Nicotine dependence, cigarettes, uncomplicated; F12.20 Cannabis dependence, uncomplicated; E87.1 Hypo-osmolality and hyponatremia; L03.313 Cellulitis of chest wall
CPT/HCPCS: 36415; 71045-TC; 71260-TC; 76705-TC; 80048-TC; 80053-TC; 80076-TC; 80202-TC; 82103; 83735-TC; 84100-TC; 85025-TC; 85610-TC; 87040-TC; 87070-TC; 87081-TC; 94799-TC; A4217; A4565; A6253; G0378; J0690; J1170; J2250; J2270; J2405; J2543; J2704; J3010; J3370; J3475; J3480; J7030; J7050; J7060; Q9967